=== PATIENT | male | born 1935 | race Two or more races ===

== ENCOUNTER 2018-09-03 09:46 | Inpatient (IN) | payer MEDICARE, OTHER, MEDICAID ==
[2018-09-03] MEDS: NITROGLYCERIN (SL) 0.4 MG TAB SL (10:06)
[2018-09-03] MEDS: ASPIRIN 81 MG TAB PO (10:07)
[2018-09-03] MEDS: FUROSEMIDE 40 MG INJ IV ×2 (10:07→17:57)
[2018-09-03] MEDS: NITROGLYCERIN 2% 1 GM OINT PKT TD (10:07)
[2018-09-03 10:26] LABS: WHITE BLOOD COUNT 19.6 10^3/ul (4.8-10.8)
[2018-09-03 10:26] LABS: ABNORMAL IP MESSAGE 1; HEMATOCRIT 44.1 % (42.0-52.0); MEAN CORPUSCULAR HEMOGLOBIN 29.4 pg (29.0-33.0); MEAN CORPUSCULAR HGB CONC 31.7 g/dl (32.0-37.0); MEAN CORPUSCULAR VOLUME 92.5 fl (82.0-101.0); MEAN PLATELET VOLUME 10.3 fl (7.4-10.4); PLATELET COUNT 242 10^3/UL (140-415); POSITIVE DIFF @See below; RED BLOOD COUNT 4.77 10^6/ul (4.70-6.10); RED CELL DISTRIBUTION WIDTH 13.2 % (11.5-14.5)
[2018-09-03 10:29] LABS: ADD MAN DIFF? YES
[2018-09-03 10:45] LABS: ANION GAP 8 (5-13); BLOOD UREA NITROGEN 30 mg/dl (7-20); CALCIUM 9.3 mg/dl (8.4-10.2); CARBON DIOXIDE 27 mmol/L (21-31); CHLORIDE 107 mmol/L (97-110); CREATININE 2.33 mg/dl (0.61-1.24); GLUCOSE 138 mg/dl (70-220); SODIUM 142 mmol/L (135-144)
[2018-09-03 11:05] LABS: ANISOCYTOSIS 1+ (0-0); BAND NEUTROPHILS #M 1.3 10^3/ul (0.0-0.6); BAND NEUTROPHILS % (M) 7 % (0-4); LYMPHOCYTES % (M) 41 % (15-51); MONOCYTE #M 1.5 10^3/ul (0.3-0.9); MONOCYTES % (M) 8 % (0-11); PLATELET ESTIMATE NORMAL; POIKILOCYTOSIS 1+ (0-0); POLYCHROMASIA 1+ (0-0); REACTIVE LYMPHOCYTES #M 0.9 10^3/ul (0.0-0.0); REACTIVE LYMPHOCYTES% (M) 5 % (0-0); SEG NEUT #M 7.9 10^3/ul (1.6-7.5); SEGMENTED NEUTROPHILS (M) % 39 % (39-77); SMUDGE%M 38 % (0-0)
[2018-09-03 11:07] LABS: TROPONIN-I 0.062 ng/ml (0.000-0.120)
[2018-09-03] MEDS ORDERED: ACETAMINOPHEN 325 MG TAB PO (12:00)
[2018-09-03] MEDS ORDERED: NACL 0.9% 3 ML SYG IV (12:00)
[2018-09-03] MEDS ORDERED: ONDANSETRON 4 MG INJ IV (12:00)
[2018-09-03 12:12] LABS: ALANINE AMINOTRANSFERASE 49 IU/L (13-69); ALKALINE PHOSPHATASE 89 IU/L (42-121); ASPARTATE AMINO TRANSFERASE 58 IU/L (15-46); BILIRUBIN,TOTAL 2.3 mg/dl (0.2-1.3); TOTAL PROTEIN 7.3 g/dl (6.1-8.1)
[2018-09-03 17:22] LABS: CREATINE KINASE 158 IU/L (23-200)
[2018-09-03 17:34] LABS: CK INDEX 0.8; CK-MB 1.33 ng/ml (0.0-2.4); TROPONIN-I 0.072 ng/ml (0.000-0.120)
[2018-09-03 18:41] LABS: B-TYPE NATRIURETIC PEPTIDE 6790 PG/ML (0-450)
[2018-09-03] MEDS ORDERED: METOPROLOL 25 MG TAB PO (21:00)
[2018-09-03] MEDS: TAMSULOSIN (SR) 0.4 MG CAP PO (21:09)
[2018-09-03] MEDS: FAMOTIDINE 20 MG TAB PO (21:09)
[2018-09-03] MEDS: MONTELUKAST 10 MG TAB PO (21:09)
[2018-09-03] MEDS: ATORVASTATIN 40 MG TAB PO (21:09)
[2018-09-03] MEDS: HEPARIN 5,000 UNIT/1 ML VIAL SC (21:13)
[2018-09-03 23:03] LABS: ADD UMIC YES; UR ASCORBIC ACID NEGATIVE (NEGATIVE); UR BILIRUBIN (Dip) NEGATIVE (NEGATIVE); UR BLOOD (Dip) 2+ mg/dL (NEGATIVE); UR CLARITY CLEAR (CLEAR); UR COLOR YELLOW (YELLOW); UR GLUCOSE (Dip) NEGATIVE (NEGATIVE); UR KETONES (Dip) NEGATIVE (NEGATIVE); UR LEUKOCYTE ESTERASE (Dip) NEGATIVE Leu/ul (NEGATIVE); UR NITRITE (Dip) NEGATIVE (NEGATIVE); UR RBC 2 /HPF (0-5); UR SPECIFIC GRAVITY (Dip) 1.008 (1.003-1.030); UR TOTAL PROTEIN (Dip) 1+ mg/dl (NEGATIVE); UR UROBILINOGEN (Dip) NEGATIVE (NEGATIVE); UR WBC 2 /HPF (0-5)
[2018-09-03 23:12] LABS: CREATINE KINASE 185 IU/L (23-200)
[2018-09-03 23:23] LABS: CK INDEX 0.8; TROPONIN-I 0.078 ng/ml (0.000-0.120)
[2018-09-03 23:39] LABS: SODIUM,URINE RANDOM 118 mmol/L (30-90)
[2018-09-03 23:39] LABS: CREATININE,URINE RANDOM 41.66 mg/dl (20-370)
[2018-09-04] MEDS: FUROSEMIDE 40 MG INJ IV ×2 (05:21→17:46)
[2018-09-04 05:52] LABS: ADD MAN DIFF? NO
[2018-09-04 06:02] LABS: ABNORMAL IP MESSAGE 1; BASOPHIL # 0.1 10^3/ul (0.0-0.1); BASOPHILS % 0.3 % (0.0-2.0); EOSINOPHILS # 0.1 10^3/ul (0.0-0.5); EOSINOPHILS % 0.5 % (0.0-7.0); HEMATOCRIT 40.9 % (42.0-52.0); HEMOGLOBIN 12.7 g/dl (14.0-18.0); LYMPHOCYTES # 7.3 10^3/ul (0.8-2.9); LYMPHOCYTES % 42.9 % (15.0-51.0); MEAN CORPUSCULAR HEMOGLOBIN 28.9 pg (29.0-33.0); MEAN CORPUSCULAR HGB CONC 31.1 g/dl (32.0-37.0); MEAN PLATELET VOLUME 10.3 fl (7.4-10.4); MONOCYTE # 1.2 10^3/ul (0.3-0.9); MONOCYTES % 6.8 % (0.0-11.0); NEUTROPHIL # 8.3 10^3/ul (1.6-7.5); NEUTROPHILS % 48.8 % (39.0-77.0); PLATELET COUNT 212 10^3/UL (140-415); POSITIVE DIFF @See below; RED CELL DISTRIBUTION WIDTH 13.4 % (11.5-14.5)
[2018-09-04 06:43] LABS: ALANINE AMINOTRANSFERASE 31 IU/L (13-69); ALBUMIN 3.6 g/dl (3.3-4.9); ALKALINE PHOSPHATASE 66 IU/L (42-121); ANION GAP 11 (5-13); ASPARTATE AMINO TRANSFERASE 29 IU/L (15-46); BILIRUBIN,INDIRECT 1.5 mg/dl (0-1.1); BILIRUBIN,TOTAL 1.5 mg/dl (0.2-1.3); BLOOD UREA NITROGEN 40 mg/dl (7-20); CALCIUM 8.9 mg/dl (8.4-10.2); CARBON DIOXIDE 29 mmol/L (21-31); CHLORIDE 105 mmol/L (97-110); CREATININE 2.62 mg/dl (0.61-1.24); GLUCOSE 119 mg/dl (70-220); POTASSIUM 3.9 mmol/L (3.5-5.1); SODIUM 145 mmol/L (135-144); TOTAL PROTEIN 7.2 g/dl (6.1-8.1)
[2018-09-04 08:01] LABS: HEMOGLOBIN A1C 5.1 % (0-5.9)
[2018-09-04] MEDS ORDERED: FUROSEMIDE 20 MG TAB PO (09:00)
[2018-09-04] MEDS: ALLOPURINOL 100 MG TAB PO (09:06)
[2018-09-04] MEDS: DUTASTERIDE 0.5 MG CAP PO (09:06)
[2018-09-04] MEDS: CLOPIDOGREL 75 MG TAB PO (09:06)
[2018-09-04] MEDS: AMLODIPINE 5 MG TAB PO (09:07)
[2018-09-04] MEDS: ISOSORBIDE MONONITRATE(SR)60 MG TAB PO (09:07)
[2018-09-04] MEDS: FLUTICASONE/VILANTEROL 100-25 INH (09:08)
[2018-09-04 09:11] LABS: BAND NEUTROPHILS #M 0.6 10^3/ul (0.0-0.6); BAND NEUTROPHILS % (M) 4 % (0-4); GIANT THROMBO% (M) 1 % (0-0); HYPOCHROMASIA 1+ (0-0); LYMPHOCYTES #M 8.5 10^3/ul (0.8-2.9); LYMPHOCYTES % (M) 50 % (15-51); MONOCYTE #M 0.6 10^3/ul (0.3-0.9); MONOCYTES % (M) 4 % (0-11); PLATELET ESTIMATE NORMAL; POLYCHROMASIA 1+ (0-0); REACTIVE LYMPHOCYTES #M 0.1 10^3/ul (0.0-0.0); REACTIVE LYMPHOCYTES% (M) 1 % (0-0); SEG NEUT #M 7.1 10^3/ul (1.6-7.5); SEGMENTED NEUTROPHILS (M) % 41 % (39-77); SMUDGE%M 25 % (0-0)
[2018-09-04] MEDS: HEPARIN 5,000 UNIT/1 ML VIAL SC ×2 (09:14→21:36)
[2018-09-04 09:31] LABS: PHOSPHORUS 4.2 mg/dl (2.5-4.9)
[2018-09-04] MEDS: ALBUTEROL 0.083% (NEB) 2.5 MG/3 ML AMP HHN ×2 (13:23→20:41)
[2018-09-04 13:58] LABS: AADO2 Arterial 129.1 mmHg (7.0-24.0); Allen Test ACCEPTAB; Arterial Base Excess 3.1 mmol/L (-3.0-3); Arterial Blood Gas Oxygen Sat 94.2 mmHG (95.0-100.0); Arterial COHb 0.6 % (0.0-3.0); Arterial Fraction of Oxyhgb 93.4 % (93.0-99.0); Arterial HCO3 29.2 mmol/L (22.0-26.0); Arterial MetHb 0.2 % (0.0-1.5); Arterial pCO2 50.3 mmhg (35-45); MODE NASAL CANNULA; Site Right Brachial
[2018-09-04] MEDS: predniSONE 20 MG TAB PO (14:26)
[2018-09-04] MEDS: TAMSULOSIN (SR) 0.4 MG CAP PO (21:17)
[2018-09-04] MEDS: ATORVASTATIN 40 MG TAB PO (21:18)
[2018-09-04] MEDS: MONTELUKAST 10 MG TAB PO (21:18)
[2018-09-04] MEDS: FAMOTIDINE 20 MG TAB PO (21:18)
[2018-09-05] MEDS: ALBUTEROL 0.083% (NEB) 2.5 MG/3 ML AMP HHN ×4 (01:43→20:05)
[2018-09-05] MEDS: FUROSEMIDE 40 MG INJ IV (05:19)
[2018-09-05 06:32] LABS: ABNORMAL IP MESSAGE 1; HEMATOCRIT 40.7 % (42.0-52.0); HEMOGLOBIN 12.5 g/dl (14.0-18.0); MEAN CORPUSCULAR HEMOGLOBIN 28.8 pg (29.0-33.0); MEAN CORPUSCULAR HGB CONC 30.7 g/dl (32.0-37.0); MEAN CORPUSCULAR VOLUME 93.8 fl (82.0-101.0); MEAN PLATELET VOLUME 10.6 fl (7.4-10.4); PLATELET COUNT 265 10^3/UL (140-415); POSITIVE DIFF @See below; RED BLOOD COUNT 4.34 10^6/ul (4.70-6.10); RED CELL DISTRIBUTION WIDTH 13.4 % (11.5-14.5)
[2018-09-05 06:32] LABS: WHITE BLOOD COUNT 20.9 10^3/ul (4.8-10.8)
[2018-09-05 06:53] LABS: ANION GAP 11 (5-13); BLOOD UREA NITROGEN 60 mg/dl (7-20); CALCIUM 8.8 mg/dl (8.4-10.2); CARBON DIOXIDE 30 mmol/L (21-31); CHLORIDE 103 mmol/L (97-110); CREATININE 2.99 mg/dl (0.61-1.24); GLUCOSE 149 mg/dl (70-220); MAGNESIUM 2.2 mg/dl (1.7-2.5); PHOSPHORUS 4.8 mg/dl (2.5-4.9); POTASSIUM 3.9 mmol/L (3.5-5.1); SODIUM 144 mmol/L (135-144)
[2018-09-05 07:01] LABS: ADD MAN DIFF? YES
[2018-09-05] MEDS: DUTASTERIDE 0.5 MG CAP PO (08:42)
[2018-09-05] MEDS: predniSONE 20 MG TAB PO (08:42)
[2018-09-05] MEDS: FLUTICASONE/VILANTEROL 100-25 INH (08:42)
[2018-09-05] MEDS: CLOPIDOGREL 75 MG TAB PO (08:43)
[2018-09-05] MEDS: AMLODIPINE 5 MG TAB PO (08:43)
[2018-09-05] MEDS: ALLOPURINOL 100 MG TAB PO (08:43)
[2018-09-05] MEDS: ISOSORBIDE MONONITRATE(SR)60 MG TAB PO (08:43)
[2018-09-05] MEDS: HEPARIN 5,000 UNIT/1 ML VIAL SC ×2 (08:54→21:46)
[2018-09-05 09:49] LABS: BAND NEUTROPHILS #M 1.2 10^3/ul (0.0-0.6); BAND NEUTROPHILS % (M) 6 % (0-4); GIANT THROMBO% (M) 1 % (0-0); LYMPHOCYTES #M 8.3 10^3/ul (0.8-2.9); LYMPHOCYTES % (M) 40 % (15-51); MONOCYTE #M 0.4 10^3/ul (0.3-0.9); MONOCYTES % (M) 2 % (0-11); PLATELET ESTIMATE NORMAL; POLYCHROMASIA 1+ (0-0); REACTIVE LYMPHOCYTES #M 0.2 10^3/ul (0.0-0.0); REACTIVE LYMPHOCYTES% (M) 1 % (0-0); SEG NEUT #M 10.9 10^3/ul (1.6-7.5); SEGMENTED NEUTROPHILS (M) % 51 % (39-77); SMUDGE%M 2 % (0-0)
[2018-09-05 14:28] LABS: CREATININE, RANDOM URINE 41 mg/dL (20-320); MICROALBUMIN 16.1 mg/dL; MICROALBUMIN/CREATININE RATIO 393 (<30)
[2018-09-05] MEDS: MONTELUKAST 10 MG TAB PO (21:00)
[2018-09-05] MEDS: FAMOTIDINE 20 MG TAB PO (21:02)
[2018-09-05] MEDS: TAMSULOSIN (SR) 0.4 MG CAP PO (21:03)
[2018-09-05] MEDS: ATORVASTATIN 40 MG TAB PO (22:09)
[2018-09-06] MEDS: ALBUTEROL 0.083% (NEB) 2.5 MG/3 ML AMP HHN ×4 (02:44→20:19)
[2018-09-06 05:53] LABS: ADD MAN DIFF? NO
[2018-09-06 05:57] LABS: ABNORMAL IP MESSAGE 1; BASOPHIL # 0.1 10^3/ul (0.0-0.1); BASOPHILS % 0.2 % (0.0-2.0); HEMOGLOBIN 12.9 g/dl (14.0-18.0); LYMPHOCYTES # 12.1 10^3/ul (0.8-2.9); LYMPHOCYTES % 48.4 % (15.0-51.0); MEAN CORPUSCULAR HEMOGLOBIN 29.1 pg (29.0-33.0); MEAN CORPUSCULAR HGB CONC 31.5 g/dl (32.0-37.0); MEAN CORPUSCULAR VOLUME 92.6 fl (82.0-101.0); MEAN PLATELET VOLUME 10.4 fl (7.4-10.4); MONOCYTE # 1.1 10^3/ul (0.3-0.9); MONOCYTES % 4.3 % (0.0-11.0); NEUTROPHIL # 11.5 10^3/ul (1.6-7.5); NEUTROPHILS % 46.1 % (39.0-77.0); PLATELET COUNT 297 10^3/UL (140-415); POSITIVE DIFF @See below; RED BLOOD COUNT 4.43 10^6/ul (4.70-6.10); RED CELL DISTRIBUTION WIDTH 13.2 % (11.5-14.5)
[2018-09-06 05:57] LABS: WHITE BLOOD COUNT 24.9 10^3/ul (4.8-10.8)
[2018-09-06 06:13] LABS: ANION GAP 13 (5-13); BLOOD UREA NITROGEN 73 mg/dl (7-20); CALCIUM 8.8 mg/dl (8.4-10.2); CARBON DIOXIDE 28 mmol/L (21-31); CHLORIDE 104 mmol/L (97-110); CREATININE 2.82 mg/dl (0.61-1.24); GLUCOSE 123 mg/dl (70-220); MAGNESIUM 2.3 mg/dl (1.7-2.5); PHOSPHORUS 4.3 mg/dl (2.5-4.9); POTASSIUM 3.9 mmol/L (3.5-5.1); SODIUM 145 mmol/L (135-144)
[2018-09-06 07:34] LABS: GIANT THROMBO% (M) 2 % (0-0); LYMPHOCYTES #M 12.9 10^3/ul (0.8-2.9); LYMPHOCYTES % (M) 52 % (15-51); MONOCYTE #M 0.7 10^3/ul (0.3-0.9); MONOCYTES % (M) 3 % (0-11); PLATELET ESTIMATE NORMAL; SEGMENTED NEUTROPHILS (M) % 45 % (39-77); SMUDGE%M 55 % (0-0)
[2018-09-06] MEDS: ALLOPURINOL 100 MG TAB PO (08:56)
[2018-09-06] MEDS: CLOPIDOGREL 75 MG TAB PO (08:56)
[2018-09-06] MEDS: predniSONE 20 MG TAB PO (08:57)
[2018-09-06] MEDS: AMLODIPINE 5 MG TAB PO (08:58)
[2018-09-06] MEDS: ISOSORBIDE MONONITRATE(SR)60 MG TAB PO (08:58)
[2018-09-06] MEDS: DUTASTERIDE 0.5 MG CAP PO (08:58)
[2018-09-06] MEDS: HEPARIN 5,000 UNIT/1 ML VIAL SC ×2 (09:06→21:46)
[2018-09-06] MEDS: FLUTICASONE/VILANTEROL 100-25 INH (09:07)
[2018-09-06 10:46] LABS: AADO2 Arterial 51.8 mmHg (7.0-24.0); Allen Test ACCEPTAB; Arterial Base Excess 4.3 mmol/L (-3.0-3); Arterial COHb 0.3 % (0.0-3.0); Arterial Fraction of Oxyhgb 85.7 % (93.0-99.0); Arterial HCO3 28.4 mmol/L (22.0-26.0); Arterial MetHb 0.1 % (0.0-1.5); Arterial pCO2 40.9 mmhg (35-45); MODE ROOM AIR; Site Right Radial
[2018-09-06] MEDS: OXYCODONE/ACETAMINOPHEN (5/325) TAB PO ×2 (10:58→19:00)
[2018-09-06] MEDS ORDERED: VANCOMYCIN IV PER PHARMACY XX (13:00)
[2018-09-06] MEDS: PIPER-TAZO 3.375 GM IV (PMX) 100 ML IVPB (14:22)
[2018-09-06] MEDS: METOPROLOL 50 MG TAB GTB ×2 (15:15→21:33)
[2018-09-06] MEDS: VANCOMYCIN HCL 2 GM in SOD CHLORIDE 0.9% 500 ML IVPB (17:53)
[2018-09-06] MEDS: PIPER-TAZO 2.25 GM/NS 50 ML IVPB (19:00)
[2018-09-06] MEDS: MONTELUKAST 10 MG TAB PO (21:31)
[2018-09-06] MEDS: ATORVASTATIN 40 MG TAB PO (21:32)
[2018-09-06] MEDS: TAMSULOSIN (SR) 0.4 MG CAP PO (21:32)
[2018-09-06] MEDS: FAMOTIDINE 20 MG TAB PO (21:33)
[2018-09-07] MEDS: PIPER-TAZO 2.25 GM/NS 50 ML IVPB ×5 (00:16→23:43)
[2018-09-07] MEDS: ALBUTEROL 0.083% (NEB) 2.5 MG/3 ML AMP HHN ×4 (01:47→20:58)
[2018-09-07] MEDS: GUAIFENESIN/DM 5ML CUP PO (04:03)
[2018-09-07 06:52] LABS: ANION GAP 8 (5-13); BLOOD UREA NITROGEN 70 mg/dl (7-20); CALCIUM 9.1 mg/dl (8.4-10.2); CARBON DIOXIDE 30 mmol/L (21-31); CHLORIDE 111 mmol/L (97-110); CREATININE 2.67 mg/dl (0.61-1.24); GLUCOSE 116 mg/dl (70-220); MAGNESIUM 2.7 mg/dl (1.7-2.5); POTASSIUM 4.2 mmol/L (3.5-5.1); SODIUM 149 mmol/L (135-144)
[2018-09-07] MEDS: FLUTICASONE/VILANTEROL 100-25 INH (09:26)
[2018-09-07] MEDS: ISOSORBIDE MONONITRATE(SR)60 MG TAB PO (09:27)
[2018-09-07] MEDS: METOPROLOL 50 MG TAB GTB ×2 (09:27→20:42)
[2018-09-07] MEDS: DUTASTERIDE 0.5 MG CAP PO (09:27)
[2018-09-07] MEDS: ALLOPURINOL 100 MG TAB PO (09:27)
[2018-09-07] MEDS: predniSONE 20 MG TAB PO (09:27)
[2018-09-07] MEDS: BENZONATATE 100 MG CAP PO ×3 (09:27→20:42)
[2018-09-07] MEDS: CLOPIDOGREL 75 MG TAB PO (09:27)
[2018-09-07] MEDS: AMLODIPINE 5 MG TAB PO (09:28)
[2018-09-07] MEDS: HEPARIN 5,000 UNIT/1 ML VIAL SC ×2 (09:42→20:56)
[2018-09-07] MEDS: FUROSEMIDE 20 MG INJ IV (12:38)
[2018-09-07] MEDS: ATORVASTATIN 40 MG TAB PO (20:41)
[2018-09-07] MEDS: TAMSULOSIN (SR) 0.4 MG CAP PO (20:42)
[2018-09-07] MEDS: MONTELUKAST 10 MG TAB PO (20:42)
[2018-09-07] MEDS: FAMOTIDINE 20 MG TAB PO (20:42)
[2018-09-08] MEDS: ALBUTEROL 0.083% (NEB) 2.5 MG/3 ML AMP HHN ×4 (01:39→19:50)
[2018-09-08] MEDS: PIPER-TAZO 2.25 GM/NS 50 ML IVPB ×3 (05:45→18:31)
[2018-09-08 06:26] LABS: ABNORMAL IP MESSAGE 1; HEMATOCRIT 41.1 % (42.0-52.0); HEMOGLOBIN 12.7 g/dl (14.0-18.0); MEAN CORPUSCULAR HEMOGLOBIN 28.7 pg (29.0-33.0); MEAN CORPUSCULAR HGB CONC 30.9 g/dl (32.0-37.0); MEAN CORPUSCULAR VOLUME 92.8 fl (82.0-101.0); MEAN PLATELET VOLUME 10.5 fl (7.4-10.4); PLATELET COUNT 309 10^3/UL (140-415); POSITIVE DIFF @See below; RED BLOOD COUNT 4.43 10^6/ul (4.70-6.10); RED CELL DISTRIBUTION WIDTH 13.7 % (11.5-14.5)
[2018-09-08 06:26] LABS: WHITE BLOOD COUNT 29.5 10^3/ul (4.8-10.8)
[2018-09-08 06:59] LABS: ADD MAN DIFF? YES
[2018-09-08 07:07] LABS: VANCOMYCIN,RANDOM 10.2 ug/ml
[2018-09-08 07:19] LABS: ANION GAP 11 (5-13); BLOOD UREA NITROGEN 69 mg/dl (7-20); CALCIUM 8.6 mg/dl (8.4-10.2); CARBON DIOXIDE 29 mmol/L (21-31); CHLORIDE 109 mmol/L (97-110); CREATININE 2.56 mg/dl (0.61-1.24); GLUCOSE 124 mg/dl (70-220); MAGNESIUM 2.7 mg/dl (1.7-2.5); PHOSPHORUS 3.8 mg/dl (2.5-4.9); POTASSIUM 3.9 mmol/L (3.5-5.1); SODIUM 149 mmol/L (135-144)
[2018-09-08] MEDS: BENZONATATE 100 MG CAP PO ×3 (08:03→20:09)
[2018-09-08] MEDS: DUTASTERIDE 0.5 MG CAP PO (08:03)
[2018-09-08] MEDS: CLOPIDOGREL 75 MG TAB PO (08:03)
[2018-09-08] MEDS: ALLOPURINOL 100 MG TAB PO (08:03)
[2018-09-08] MEDS: ISOSORBIDE MONONITRATE(SR)60 MG TAB PO (08:03)
[2018-09-08] MEDS: GUAIFENESIN/DM 5ML CUP PO (08:03)
[2018-09-08] MEDS: predniSONE 20 MG TAB PO (08:03)
[2018-09-08] MEDS: METOPROLOL 50 MG TAB GTB ×2 (08:04→20:09)
[2018-09-08] MEDS: AMLODIPINE 5 MG TAB PO (08:04)
[2018-09-08] MEDS: FLUTICASONE/VILANTEROL 100-25 INH (08:04)
[2018-09-08] MEDS: HEPARIN 5,000 UNIT/1 ML VIAL SC ×2 (08:33→20:24)
[2018-09-08 09:37] LABS: ANISOCYTOSIS 1+ (0-0); BAND NEUTROPHILS #M 0.5 10^3/ul (0.0-0.6); BAND NEUTROPHILS % (M) 2 % (0-4); ERYTHROBLAST% (NRBC) (M) 1 % (0-0); HYPOCHROMASIA 1+ (0-0); LYMPHOCYTES #M 10.9 10^3/ul (0.8-2.9); LYMPHOCYTES % (M) 37 % (15-51); METAMYELOCYTES #M 0.5 10^3/ul (0.0-0.0); METAMYELOCYTES %M 2 % (0-0); MONOCYTE #M 0.2 10^3/ul (0.3-0.9); MONOCYTES % (M) 1 % (0-11); PLATELET ESTIMATE NORMAL; PLATELET MORPHOLOGY COMMENT @See below; SEG NEUT #M 17.3 10^3/ul (1.6-7.5); SEGMENTED NEUTROPHILS (M) % 58 % (39-77); SMUDGE%M 19 % (0-0)
[2018-09-08] MEDS: VANCOMYCIN 1 GM 250 ML IVPB (11:12)
[2018-09-08] MEDS: FUROSEMIDE 20 MG INJ IV (14:37)
[2018-09-08] MEDS: MONTELUKAST 10 MG TAB PO (20:09)
[2018-09-08] MEDS: TAMSULOSIN (SR) 0.4 MG CAP PO (20:09)
[2018-09-08] MEDS: FAMOTIDINE 20 MG TAB PO (20:09)
[2018-09-08] MEDS: ATORVASTATIN 40 MG TAB PO (20:09)
== END 2018-09-08 20:41 | disposition home health service (06) | DRG 291 ==
LOC: 6WM 09-06 11:10 → E/R 09:46 → 6WM 11:45
DX: I13.0 Hypertensive heart and chronic kidney disease with heart failure and stage 1 through stage 4 chronic kidney disease, or unspecified chronic kidney disease (principal); J96.01 Acute respiratory failure with hypoxia; I50.31 Acute diastolic (congestive) heart failure; J44.1 Chronic obstructive pulmonary disease with (acute) exacerbation; N17.9 Acute kidney failure, unspecified; N18.4 Chronic kidney disease, stage 4 (severe); E11.9 Type 2 diabetes mellitus without complications; I50.9 Heart failure, unspecified; I25.10 Atherosclerotic heart disease of native coronary artery without angina pectoris; N40.0 Benign prostatic hyperplasia without lower urinary tract symptoms; E66.9 Obesity, unspecified; Z68.34 Body mass index [BMI] 34.0-34.9, adult; E78.5 Hyperlipidemia, unspecified
CPT/HCPCS: 36415; 36600; 71045; 76775; 80048; 80053; 80076; 80202; 81001; 81003; 82043; 82550; 82553; 82803; 83036; 83735; 83880; 84100; 84155; 84300; 84484; 85025; 93005; 93306; 94640; 94660; 94664; 96374; 97161; 99285-25